=== PATIENT | female | born 1955 | race Caucasian/White ===

== ENCOUNTER 2019-11-02 07:04 | Day surgery (SDC) | payer BC ==
[2019-11-02] MEDS ORDERED: fentaNYL 100 MCG/2 ML SDV ONE (07:17)
[2019-11-02] MEDS ORDERED: Propofol 200 MG/20 ML SDV ONE (07:17)
[2019-11-02] MEDS ORDERED: Midazolam 1 MG/ML 2 ML SDV ONE (07:17)
[2019-11-02] MEDS ORDERED: Sodium Chloride 0.9% 1,000 ML IV SCH (07:30)
--- NOTE | 2019-11-03 10:21 | OR ---
DATE OF PROCEDURE: 11/02/2019 SURGEON: Carlitos Dillon MD PROCEDURE: Colonoscopy. FINDINGS: 1. Ascending colon polyp, approximately 5 mm, completely removed using cold biopsy forceps. 2. Descending colon polyp, approximately 8 mm, completely removed using hot snare wire device. COMPLICATIONS: None. [employer] SUPERVISOR: None. ANESTHESIA: MAC. PREOPERATIVE DIAGNOSES: Positive fecal immunochemical test test/family history of colorectal cancer. We also discussed false positives, false negatives, and other risks not listed here. POSTOPERATIVE DIAGNOSES: Positive fecal immunochemical test/family history of colorectal cancer. We also discussed false positives, false negatives, and other risks not listed here. PROCEDURE IN DETAIL: The patient was placed in left lateral decubitus position. Digital rectal exam was performed without abnormality. Scope was introduced and advanced atraumatically to the ileocecal valve. Photo was taken. Scope was brought back through the ascending, transverse, descending colon, and retroflexed. The aforementioned polyps were identified and completely removed. No evidence of old or new blood. No diverticulosis. No abnormalities on retroflex. Greater than 8 minutes was spent removing the scope. The patient tolerated the procedure well. Carlitos Dillon MD /[id number]
== END 2019-11-02 10:25 | disposition home or self-care (01) ==
LOC: JP.SDS 07:04
PROVIDERS: ATTEND Surgery
DX: D12.2 Benign neoplasm of ascending colon (principal); D12.4 Benign neoplasm of descending colon; E78.5 Hyperlipidemia, unspecified; Z88.2 Allergy status to sulfonamides; Z80.0 Family history of malignant neoplasm of digestive organs
CPT/HCPCS: 45380; 45385; J2250; J2704; J3010; J7030; 88305

== ENCOUNTER 2023-12-15 07:34 | Day surgery (SDC) | payer MEDICARE ==
[~2023-12-15 07:34] MED LIST: Midazolam 1 MG/ML 2 ML SDV ONE; Propofol 200 MG/20 ML SDV ONE; fentaNYL 50 MCG/ML SDV ONE
[2023-12-15] MEDS: Lactated Ringers 1,000 ML IV SCH (08:05)
== END 2023-12-15 11:06 | disposition home or self-care (01) ==
LOC: JP.SDS 07:34
PROVIDERS: ATTEND Surgery
DX: Z12.11 Encounter for screening for malignant neoplasm of colon (principal); D12.2 Benign neoplasm of ascending colon; G30.9 Alzheimer's disease, unspecified; F02.80 Dementia in other diseases classified elsewhere, unspecified severity, without behavioral disturbance, psychotic disturbance, mood disturbance, and anxiety; Z88.2 Allergy status to sulfonamides
CPT/HCPCS: 45385; 88305; J2250; J2704; J3010; J7120; 00811-QZ